=== PATIENT | male | born 1955 | race Caucasian/White ===

== ENCOUNTER 2016-03-01 03:11 | Emergency (ER) | payer MEDICARE ==
[2016-03-01 03:34] VITALS: BMI 34.8
--- NOTE | 2016-03-01 04:11 | EDPRACDOC ---
- General Information Chief Complaint: Flu-Like Symptoms Stated Complaint: CONGESTION Time Seen by Provider: 03/01/16 04:06 Information Source: Patient Mode Of Arrival: Car Home Medications: Home Medications Amiodarone HCl [Pacerone] 200 mg PO DAILY 01/04/12 Digoxin [Lanoxin, Digitek] 0.125 mg PO DAILY 01/04/12 Enalapril Maleate [Vasotec] 5 mg PO BID 01/04/12 Pantoprazole Sodium 40 mg PO DAILY 01/04/12 Warfarin Sodium [Coumadin] 5 mg PO [id number] 03/03/12 Warfarin Sodium [Coumadin] 7.5 mg PO TH 03/03/12 Metoprolol Tartrate [Lopressor] 25 mg PO BID 08/23/12 Insulin 70/30 Mix [Humulin 70/30] 50 units SQ HS 09/24/12 Insulin 70/30 Mix [Humulin 70/30] 50 units SQ QAM 09/24/12 Aspirin [Aspirin EC] 81 mg PO HS 09/17/13 Ipratropium [Atrovent Hfa] 2 puff INH BID 09/17/13 Nitroglycerin [Nitroquick] 0.4 mg SL Q5MX3 PRN 09/17/13 Polyethylene Glycol 8000 [Polyethylene Glycol] 17 gm PO DAILY PRN 09/17/13 Nebulizer [Erapid Nebulizer] 1 each MC DAILY 06/19/14 Albuterol/Ipratropium Neb [Duoneb] 3 ml NEB RTQ6 PRN 06/30/14 Torsemide [Demadex] 100 mg PO BID 06/30/14 Cetirizine HCl [Zyrtec] 10 mg PO DAILY 01/13/15 Albuterol Sulfate [Proair Hfa] 2 puff INH Q4 #1 inhaler 03/01/15 POTASSIUM CHLORIDE Tablet [Klor-Con M20] 20 meq PO DAILY 04/09/15 Gabapentin [Neurontin] 300 mg PO TID #45 cap 09/04/15 Atorvastatin Calcium [Lipitor] 20 mg PO QHS 12/30/15 Oxycodone HCl [Oxycodone Immediate Release] 10 mg PO QID PRN 12/30/15 Amox Tr/Potassium Clavulanate [Augmentin Tablet (875mg/125mg)] 1 tab PO BID #20 tablet 01/30/16 Ferrous Sulfate 1 tab PO DAILY 01/30/16 Prednisone [Deltasone, Orasone] 20 mg PO DAILY #20 tab 01/30/16 Albuterol Sulfate 2.5 mg NEB Q4H PRN #1 box 03/01/16 Azithromycin 250 mg PO DAILY #6 tablet 03/01/16 Allergies/Adverse Reactions: Allergies Allergy/AdvReac Type Severity Reaction Status Date / Time cefdinir Allergy Unknown Verified 01/30/16 19:22 - History of Present Illness Onset: APPLIQUER ZIGZAG HPI: PT PRESENTS WITH ACUTE ON CHRONIC SINUS CONGESTION FOR MANY MONTHS. CAME IN TONIGHT BECAUSE HE RAN OUT OF HIS ALBUTEROL FOR HIS NEBULIZER. HE HAS AN APPOINTMENT WITH THIS PCP ON THE . Shortness of Breath: Mild Cough: Reports: Green Rhinorrhea: Reports: Clear Associated Signs & Symptoms:: Reports: Cough, Nasal Symptoms. Denies: Fever ED Past Medical History - History Reviewed Yes Nurses notes reviewed and agree except as marked - Patient Medical History Neurological History: Denies: Cerebrovascular Accident Cardiac History: Reports: Atrial Fibrillation, Hypertension, Congestive Heart Failure, Heart Attack (4 stents), Cardiac Catheterization, CABG (Initial CABG 1992 with redos in 2007 an 2008.), Hypercholesterolemia, Pacemaker Respiratory History: Reports: COPD, Emphysema GI/ History: Reports: Gastroesophageal Reflux Psychological History: Denies: Depression, Substance Use Disorder Systemic History: Reports: Diabetes Surgical History: Reports: CABG (Initial CABG 1992 with redos in 20072008.) , Cardiac Catheterization, Hernia Surgery, Other (AICD placement, right foot amputation.) - Family Medical History Reports: Hypertension, Diabetes (SIBLINGS /PARENTS), Cardiac Disorders ( Coronary artery disease in his father) - Social Medical History Smoking Status: Current some day smoker Social History: Denies: Substance Use Disorder Lives In: Home EDM Review of Systems - Review of Systems ROS Negative Except as Marked: Yes All systems reviewed and were negative except as marked Constitutional: negative: Fever Nose: Congestion, Discharge Respiratory: Cough, Shortness of Breath Cardiovascular: negative: Chest Pain Gastrointestinal: negative: Pain, Vomiting - Physical Exam Constitutional: Alert Oriented to: Time, Person, Place Last recorded Vital Signs: Last Vital Signs Temp 98.5 F 03/01/16 03:32 Pulse 68 03/01/16 03:32 Resp 20 03/01/16 03:32 BP 122/62 03/01/16 03:32 Pulse Ox 97 03/01/16 03:32 Oxygen Pulse Oxygen Saturation 97 O2 Device Room Air Oxygen Flow Rate Fraction of Inspired Oxygen ( FIO2) - HEENT Head: negative: Deformity, Laceration Eye Exam: negative: Conjunctival Injection, Pale Conjunctiva Nose: Congestion, Discharge Neck: negative: Limited ROM - Respiratory/Cardiovascular Respiratory: Normal - CTA. negative: Accessory Muscle Use, Diminished, Tachypnea Cardiovascular: negative: Bradycardia, Tachycardia, Irregular - Integumentary Skin: Warm, Dry. negative: Rash - Neurologic Memory Impaired: Normal Motor Function: Normal Mood Description: Anxious Thought: Coherent Perception: Normal Decision Time to Discharge: 04:11 - Departure Yes I personally saw and evaluated the patient. Disposition: Home Condition: Stable Final Diagnosis: Sinusitis Qualifiers: Sinusitis location: unspecified location Chronicity: chronic Qualified Code(s) : J32.9 - Chronic sinusitis, unspecified Instructions: Sinusitis (ED) Education/Counseling Given To: Patient Education/Counseling Given Regarding: Diagnosis, Treatment, Prognosis, Follow Up Referrals: None,No Provider [Primary Care Provider] - Call for Appointment Prescriptions: Albuterol Sulfate 2.5 mg NEB Q4H PRN #1 box PRN Reason: Dyspnea Azithromycin 250 mg PO DAILY #6 tablet
[2016-03-01 04:28] VITALS: BP 108/66; PULSE 88; TEMP 97.9
== END 2016-03-01 04:27 | disposition home or self-care (01) ==
LOC: ED 03:11
DX: J32.9 Chronic sinusitis, unspecified (principal)
CPT/HCPCS: 99283